=== PATIENT | male | born 1950 | race African-American/Black ===

== ENCOUNTER 2024-01-09 11:45 | Emergency (ER) | payer MEDICARE ==
[~2024-01-09] VITALS: Ht 167.6 cm; Wt 68.2 kg
[~2024-01-09 11:45] MED LIST: ADVIL200 MG PO; NORCO 325 MG-51 TAB PO; PHENERGAN25 MG/ML INJ; PREDNISONE20 MG PO; TRIAMCINOLONE A15 G3 TP; VITAMINS; ZYRTEC-D 12HR 51 TER PO
[2024-01-09 12:47] LABS: BASO % 0.2 % (0.0-2.0); EOS % 0.5 % (0.0-4.0); GRAN # 6.4 K/mm3 (1.4-6.5); GRAN % 79.2 % (42.2-75.2); HEMATOCRIT 42.2 % (42.0-52.0); HEMOGLOBIN 14.4 g/dl (13.5-18.0); LYMPH # 1.2 K/mm3 (1.2-3.4); LYMPH % 14.8 % (20.0-51.0); MEAN CELL VOLUME 87 fl (80.0-100.0); MEAN CORPUSCULAR HEMOGLOBIN 30 pg (27-31); MEAN CORPUSCULAR HGB CONC 34 g/dl (33.0-37.0); MEAN PLATELET VOLUME 9.4 fl (7.4-10.4); MONO # 0.4 K/mm3 (0.1-0.6); MONO % 5.2 % (1.7-9.3); PLATELET COUNT 218 K/mm3 (130-400); RED BLOOD COUNT 4.86 M/mm3 (4.20-5.60); REDCELL DISTRIBUTION WIDTH-CV 13.3 % (11.5-14.5)
[2024-01-09 13:35] LABS: BILIRUBIN,TOTAL 0.7 mg/dL (0.2-1.2); CREATININE, serum 1.02 mg/dL (0.72-1.25); POTASSIUM 3.9 mEq/L (3.5-4.5); TOTAL PROTEIN 6.8 g/dl (6.2-8.1)
[2024-01-09] MEDS ORDERED: BENTYL 10MG10 MG/CAP PO (13:58)
[2024-01-09 14:17] VITALS: BP 134/79; PULSE 68; TEMP 98.6
== END 2024-01-09 14:15 | disposition home or self-care (01) ==
LOC: COL.ER 11:45
PROVIDERS: Physician Assistant
DX: R10.9 Unspecified abdominal pain (principal)